=== PATIENT | female | born 2000 | race Asian ===

== ENCOUNTER 2019-01-30 17:08 | Emergency (ER) | payer OTHER ==
[2019-01-30] MEDS ORDERED: NS 0.9% 1000 ML** 1,000 ML IV ONE (20:14)
--- NOTE | 2019-01-30 20:14 | ED ---
Syncope/Near Syncope - HPI Summary HPI Summary: This patient is a 18 year old female presenting to [facility] with a chief complaint of syncope. She states she has had a fever for 2 days and had 2 syncopal episodes this morning, the first shortly after she woke up when she was brushing her teeth. She said she felt like she did not have any warning. She then the 2nd episode came 10 minutes after the first one. She states she had had one syncopal episode before today. She states her temp was 101.6 F when she took it. She went to urgent care and then sent her here for evaluation. She says her roommate was sick a couple weeks ago. She reports cough. She denies abdominal pain, urinary symptoms, and headache. She denies any recent tick bites. - History Of Current Complaint Chief Complaint: EDSyncope Time Seen by Provider: 01/30/19 20:06 Hx Obtained From: Patient Onset/Duration: Lasting Hours Context: Loss Of Consciousness PMH/Surg Hx/FS Hx/Imm Hx Endocrine/Hematology History: Denies: Hx Diabetes Cardiovascular History: Denies: Hx Coronary Artery Disease Infectious Disease History: No Infectious Disease History: Denies: Traveled Outside the [place] in Last 30 Days - Family History Known Family History: Negative: Cardiac Disease - Social History Occupation: Student Lives: Dormitory/Roommates Review of Systems Positive: Fever Positive: Cough Negative: Abdominal Pain Genitourinary: Negative Positive: Syncope. Negative: Headache All Other Systems Reviewed And Are Negative: Yes Physical Exam - Summary Physical Exam Summary: Appearance: Well-appearing, Well-nourished, lying in bed comfortably Skin: Warm, dry, no obvious rash Eyes: sclera anicteric, no conjunctival pallor ENT: mucous membranes moist, pharynx appears normal Neck: Supple, nontender Respiratory: Clear to auscultation, no signs of respiratory distress Cardiovascular: Normal S1, S2. No murmurs. Normal distal pulses in tibial and radial bilaterally. Abdomen: Soft, nontender, normal active bowel sounds present Musculoskeletal: Normal, Strength/ROM Intact Neurological: A&Ox3, awake and alert, mentation is normal, speech is fluent and appropriate Psychiatric: affect is normal, does not appear anxious or depressed Triage Information Reviewed: Yes Vital Signs On Initial Exam: Initial Vitals Temp Pulse Resp BP Pulse Ox 97.7 F 102 18 133/100 97 01/30/19 17:19 01/30/19 17:19 01/30/19 17:19 01/30/19 17:19 01/30/19 17:19 Vital Signs Reviewed: Yes Procedures - Sedation Patient Received Moderate/Deep Sedation with Procedure: No Diagnostics - Vital Signs Vital Signs Temp Pulse Resp BP Pulse Ox 01/30/19 19:23 99.1 F 122 15 129/90 98 01/30/19 17:19 97.7 F 102 18 133/100 97 - Laboratory Result Diagrams: 01/30/19 20:32 01/30/19 20:29 Lab Statement: Any lab studies that have been ordered have been reviewed, and results considered in the medical decision making process. - EKG 2030 Cardiac Rate: NL - 91 BPM EKG Rhythm: Sinus Rhythm Summary of EKG Findings: NSR at 91 BPM, P waves, QRS complex, and T waves are within normal limits, T waves and intervals are normal, no ischemic changes. This is a normal EKG. ED Physician has reviewed and interpreted this EKG. Course/Dx Course Of Treatment: This patient is a 18 year old female presenting to [facility] with a chief complaint of syncope. Physical exam was unremarkable. She has been running a fever over the weekend and with the syncope there was some concern she could have Lyme carditis causing her syncope. No sign of heart block on EKG fortunately, I suspect the syncope is vasovagal and given there is no obvious source for her fever recommended treatment for suspected Lyme disease. Labs are unremarkable except Plt Count 101 L, Sodium 134 L, Glucose 123 H, CRP 25.18 H. A plan for discharge was discussed with the patient and she was agreeable with this plan. - Diagnoses Provider Diagnoses: Fever, Syncope Discharge ED - Sign-Out/Discharge Documenting (check all that apply): Patient Departure - Discharge - Discharge Plan Condition: Good Disposition: HOME Prescriptions: DOXYcycline CAP(*) [DOXYcycline 100MG CAP(*)] 100 mg PO BID 21 Days #42 cap Patient Education Materials: Fever in Adults (ED), Syncope (ED) Referrals: [facility] [Outside] - 4 Days (if not better) Additional Instructions: As I do not have an alternative diagnosis for the cause of your fever, I am suspicious that it could be a tick borne infection like Lyme disease. It would be difficult to be certain about this, unless you develop the classic rash over the next few days. If it is Lyme, you should stop having fevers within about 3 days of starting the antibiotic. If you don't feel better, especially if you are also developing other symptoms, you should be rechecked either here or at [facility]. - Billing Disposition and Condition Condition: GOOD Disposition: Home - Attestation Statements Document Initiated by Reggie: Yes Documenting Scribe: Calvin Pina Provider For Whom Reggie is Documenting (Include Credential): Lg Burdick MD Scribe Attestation: ICalvin, scribed for Lg Burdick MD on 02/02/19 at 1830. Scribe Documentation Reviewed: Yes Provider Attestation: The documentation as recorded by the Calvin navarro accurately reflects the service I personally performed and the decisions made by me, Lg Burdick MD Status of Scrisabel Document: Viewed
[2019-01-30 20:44] LABS: ABS Lymphocytes 1.7 10^3/ul (1.0-4.8); ABS Monocytes 0.7 10^3/ul (0-0.8); ABS Neutrophils 1.8 10^3/ul (1.5-7.7); Eosinophil % 0.1 %; Hematocrit 42 % (35-47); Hemoglobin 14.2 g/dL (12.0-16.0); Lymphocyte % 40.6 %; Mean Corpuscular HGB Conc 34 g/dL (31-36); Mean Corpuscular Hemoglobin 31 pg (27-31); Mean Corpuscular Volume 91 fL (80-97); Mean Platelet Volume 10.4 fL (7.4-10.4); Nucleated Red Blood Cells % 0.1; Platelet Count 101 10^3/uL (150-450); Red Blood Count 4.55 10^6 /uL (3.70-4.87); Red Cell Distribution Width 13 % (10-15); White Blood Count 4.3 10^3/uL (3.5-10.8)
[2019-01-30 20:59] LABS: ALT 15 U/L (7-52); AST 29 U/L (13-39); Albumin 4.4 g/dL (3.2-5.2); Albumin/Globulin Ratio 1.4 (1-3); Alkaline Phosphatase 48 U/L (34-104); Anion Gap 4 mmol/L (2-11); BUN/Creatinine Ratio 12.2 (8-20); Blood Urea Nitrogen 11 mg/dL (6-24); C Reactive Protein 25.18 mg/L (<8.01); CO2 Carbon Dioxide 29 mmol/L (22-32); Calcium 9.3 mg/dL (8.6-10.3); Chloride 101 mmol/L (101-111); EGFR African American 96.6 (>60); EGFR Non-African American 79.8 (>60); Globulin 3.2 g/dL (2-4); Glucose 123 mg/dL (70-100); Potassium 4.8 mmol/L (3.5-5.0); Sodium 134 mmol/L (135-145); Total Protein 7.6 g/dL (6.4-8.9)
[2019-01-30 21:06] LABS: HCG Pregnancy < 0.60 mIU/mL
[2019-01-30] MEDS ORDERED: DOXYcycline CAP(*) 100 MG PO ONE (21:41)
[2019-01-30 21:48] LABS: Rapid Strep Molecular Negative (Negative)
[2019-01-30 21:56] VITALS: BP 138/109
[2019-01-30 22:08] LABS: Influenza A Molecular NEGATIVE (Negative); Influenza B Molecular NEGATIVE (Negative)
== END 2019-01-30 21:55 | disposition home or self-care (01) ==
LOC: ED 17:08
DX: R55 Syncope and collapse (principal); R50.9 Fever, unspecified
CPT/HCPCS: 36415; 80053; 84702; 85025; 86140; 87651; 93005; 96360; 99283; A9270-GY